=== PATIENT | male | born 1965 ===

== ENCOUNTER 2023-10-01 13:11 | Outpatient (CLI) | payer OTHER | END 2023-10-01 13:33 | disposition home or self-care (01) | LOC: RAD 13:11 | PROVIDERS: ATTEND Orthopaedic Surgery | DX: Z76.89 Persons encountering health services in other specified circumstances (principal) ==

== ENCOUNTER 2023-11-04 10:54 | Outpatient (CLI) | payer OTHER | END 2023-11-04 11:05 | disposition home or self-care (01) | LOC: MRI 10:54 | PROVIDERS: ATTEND Orthopaedic Surgery | DX: M25.562 Pain in left knee (principal); M23.92 Unspecified internal derangement of left knee | CPT/HCPCS: 73721 ==